=== PATIENT | male | born 1985 | race Caucasian/White ===

== ENCOUNTER 2018-10-31 15:45 | Emergency (ER) | payer OTHER ==
--- NOTE | 2018-10-31 17:56 | UC ---
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 This occurred when the shuttle bus driver accidentally accelerated, pinning his foot. Has diffuse swelling and pain with weight bearing. No ice, no analgesics used. 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 [employer] - Risk Factors Gout Risk Factors: Negative DVT Risk Factors: Negative Septic Arthritis Risk Factor: Negative - Allergies/Home Medications Allergies/Adverse Reactions: Allergies Allergy/AdvReac Type Severity Reaction Status Date / Time No Known Allergies Allergy Verified 03/10/14 12:43 PMH/Surg Hx/FS Hx/Imm Hx Previously Healthy: Yes - Surgical History Surgical History: None - Family History Known Family History: Positive: Non-Contributory - Social History Occupation: Employed Full-time Lives: With Family Alcohol Use: Occasionally Substance Use Type: None Smoking Status (MU): Light Every Day Tobacco Smoker Type: Smokeless Tobacco Amount Used/How Often: 1 tin a week Have You Smoked in the Last Year: No Review of Systems All Other Systems Reviewed And Are Negative: Yes Constitutional: Positive: Negative Skin: Positive: Negative Eyes: Positive: Negative ENT: Positive: Negative Respiratory: Positive: Negative Cardiovascular: Positive: Negative Gastrointestinal: Positive: Negative Genitourinary: Positive: Negative Motor: Positive: Decreased ROM - right ankle Musculoskeletal: Positive: Arthralgia, Myalgia Neurological: Positive: Negative Psychological: Positive: Negative Physical Exam Triage Information Reviewed: Yes Appearance: Well-Appearing, Pain Distress - mild to moderate. Vital Signs: Initial Vital Signs Temp 99.0 F 10/31/18 16:10 Pulse 89 10/31/18 16:10 Resp 14 10/31/18 16:10 BP 144/79 10/31/18 16:10 Pulse Ox 100 10/31/18 16:10 ENT Exam: Normal Respiratory: Positive: Lungs clear, Normal breath sounds Cardiovascular: Positive: RRR, No Murmur Musculoskeletal: Positive: ROM Limited @ - midfoot. Ankle rom is full without bony tenderness. Neurological Exam: Normal Psychological Exam: Normal Skin Exam: Normal Diagnostics - Radiology No standard instances Radiology Interpretation Completed By: ED Physician Summary of Radiographic Findings: read: possible non-displaced fracture of proximal 4th metatarsal. Other bony structures intact. Lower Extremity Course/Dx - Course Course Of Treatment: treatment of foot crush injury with firm shoe, ice, elevation. He feels fit to work and can adjust his environment at work to accommodate his needs. - Differential Dx/Diagnosis Differential Diagnosis/HQI/PQRI: Fracture (Closed), Sprain, Other - crush injury Provider Diagnosis: Crush injury of foot Discharge - Sign-Out/Discharge Documenting (check all that apply): Patient Departure All imaging exams completed and their final reports reviewed: No - Discharge Plan Condition: Stable Disposition: HOME Patient Education Materials: Crush Injury (ED) Referrals: No Primary Care Phys,NOPCP [Primary Care Provider] - Additional Instructions: As discussed, there is a possible non-displaced fracture in the fourth metatarsal bone of the foot. This will be confirmed tomorrow. Meantime, elevate your foot, ice it regularly, and use ibuprofen 600mg every 6 hours as needed for pain. Continue use of a supportive shoe. - Billing Disposition and Condition Condition: STABLE Disposition: Home
[2018-10-31 19:06] VITALS: BP 140/89
--- NOTE | 2018-11-01 10:23 | UC ---
- Progress Note Progress Note: xray report right foot : IMPRESSION: No fracture of the right foot is noted. Course/Dx - Diagnoses Provider Diagnoses: Crush injury of foot Discharge - Sign-Out/Discharge Documenting (check all that apply): Patient Departure All imaging exams completed and their final reports reviewed: Yes - Discharge Plan Condition: Stable Disposition: HOME Patient Education Materials: Crush Injury (ED) Referrals: No Primary Care Phys,NOPCP [Primary Care Provider] - Additional Instructions: As discussed, there is a possible non-displaced fracture in the fourth metatarsal bone of the foot. This will be confirmed tomorrow. Meantime, elevate your foot, ice it regularly, and use ibuprofen 600mg every 6 hours as needed for pain. Continue use of a supportive shoe. - Billing Disposition and Condition Condition: STABLE Disposition: Home
== END 2018-10-31 19:08 | disposition home or self-care (01) ==
LOC: UCCORT 15:45
DX: S97.81XA Crushing injury of right foot, initial encounter (principal); F17.290 Nicotine dependence, other tobacco product, uncomplicated; W23.0XXA Caught, crushed, jammed, or pinched between moving objects, initial encounter; Y92.89 Other specified places as the place of occurrence of the external cause
CPT/HCPCS: 99202; G0463